=== PATIENT | female | born 1930 | race Caucasian/White ===

== ENCOUNTER → 2016-05-05 | Outpatient (CLI) | payer MEDICARE ==
[~2016-05-05] VITALS: Ht 167.6 cm; Wt 86.2 kg
== END ==
LOC: OPSV 11:00
DX: J44.9 Chronic obstructive pulmonary disease, unspecified (principal); J30.9 Allergic rhinitis, unspecified; Z88.2 Allergy status to sulfonamides; Z88.1 Allergy status to other antibiotic agents; Z88.8 Allergy status to other drugs, medicaments and biological substances
CPT/HCPCS: 96372; J2357

== ENCOUNTER → 2016-06-26 | Outpatient (CLI) | payer MEDICARE ==
[~2016-06-26] VITALS: Ht 160 cm; Wt 86.2 kg
== END ==
LOC: OPSV 10:00
DX: J44.9 Chronic obstructive pulmonary disease, unspecified (principal); J30.9 Allergic rhinitis, unspecified
CPT/HCPCS: 96372; J2357

== ENCOUNTER → 2016-07-24 | Outpatient (CLI) | payer MEDICARE ==
[~2016-07-24] VITALS: Ht 160 cm; Wt 86.2 kg
== END ==
LOC: OPSV 13:00
DX: J44.9 Chronic obstructive pulmonary disease, unspecified (principal); J30.9 Allergic rhinitis, unspecified
CPT/HCPCS: 96372; J2357

== ENCOUNTER → 2016-08-21 | Outpatient (CLI) | payer MEDICARE ==
[~2016-08-21] VITALS: Ht 160 cm; Wt 86.2 kg
== END ==
LOC: OPSV 13:00
DX: J44.9 Chronic obstructive pulmonary disease, unspecified (principal); J30.9 Allergic rhinitis, unspecified
CPT/HCPCS: 96372; J2357

== ENCOUNTER → 2016-11-15 | Outpatient (CLI) | payer MEDICARE ==
[~2016-11-15] VITALS: Ht 160 cm; Wt 86.2 kg
== END ==
LOC: OPSV 13:55
DX: J30.9 Allergic rhinitis, unspecified (principal); J44.9 Chronic obstructive pulmonary disease, unspecified
CPT/HCPCS: 96372; J2357

== ENCOUNTER → 2020-03-10 | Outpatient (CLI) | payer MEDICARE ==
[~2020-03-10] VITALS: Ht 160 cm; Wt 86.2 kg
== END ==
LOC: OPSV 12:51
DX: J30.9 Allergic rhinitis, unspecified (principal); J44.9 Chronic obstructive pulmonary disease, unspecified
CPT/HCPCS: 96372; J2357

== ENCOUNTER → 2020-04-07 | Outpatient (CLI) | payer MEDICARE ==
[~2020-04-07] VITALS: Ht 160 cm; Wt 86.2 kg
== END ==
LOC: OPSV 14:00
DX: J30.9 Allergic rhinitis, unspecified (principal); J44.9 Chronic obstructive pulmonary disease, unspecified
CPT/HCPCS: 96372; J2357

== ENCOUNTER → 2020-05-13 | Outpatient (CLI) | payer MEDICARE | LOC: OPSV 05-05 14:00 | DX: J30.9 Allergic rhinitis, unspecified (principal); J44.9 Chronic obstructive pulmonary disease, unspecified | CPT/HCPCS: 96372; J2357 ==

== ENCOUNTER → 2020-06-09 | Outpatient (CLI) | payer MEDICARE ==
[~2020-06-09] VITALS: Ht 160 cm; Wt 86.2 kg
== END ==
LOC: OPSV 14:00
DX: J30.9 Allergic rhinitis, unspecified (principal); J44.9 Chronic obstructive pulmonary disease, unspecified
CPT/HCPCS: 96372

== ENCOUNTER → 2020-07-07 | Outpatient (CLI) | payer MEDICARE ==
[~2020-07-07] VITALS: Ht 160 cm; Wt 86.2 kg
== END ==
LOC: OPSV 12:28
DX: J30.9 Allergic rhinitis, unspecified (principal); J44.9 Chronic obstructive pulmonary disease, unspecified
CPT/HCPCS: 96372; J2357

== ENCOUNTER → 2020-08-17 | Outpatient (CLI) | payer MEDICARE ==
[~2020-08-17] VITALS: Ht 160 cm; Wt 86.2 kg
== END ==
LOC: OPSV 13:00
DX: J30.9 Allergic rhinitis, unspecified (principal); J44.9 Chronic obstructive pulmonary disease, unspecified
CPT/HCPCS: 96372; J2357

== ENCOUNTER → 2020-09-22 | Outpatient (CLI) | payer MEDICARE ==
[~2020-09-22] VITALS: Ht 160 cm; Wt 86.2 kg
== END ==
LOC: OPSV 09-14 13:00
DX: J30.9 Allergic rhinitis, unspecified (principal); J44.9 Chronic obstructive pulmonary disease, unspecified
CPT/HCPCS: 96372; J2357

== ENCOUNTER → 2020-10-20 | Outpatient (CLI) | payer MEDICARE ==
[~2020-10-20] VITALS: Ht 160 cm; Wt 86.2 kg
== END ==
LOC: OPSV 13:00
DX: J30.9 Allergic rhinitis, unspecified (principal); J44.9 Chronic obstructive pulmonary disease, unspecified
CPT/HCPCS: 96372; J2357

== ENCOUNTER → 2020-11-15 | Outpatient (CLI) | payer MEDICARE | LOC: EXRD 14:12 | DX: I50.30 Unspecified diastolic (congestive) heart failure (principal) | CPT/HCPCS: 71046 ==

== ENCOUNTER → 2020-11-18 | Outpatient (CLI) | payer MEDICARE ==
[~2020-11-18] VITALS: Ht 160 cm; Wt 86.2 kg
== END ==
LOC: OPSV 14:00
DX: J44.9 Chronic obstructive pulmonary disease, unspecified (principal); J30.9 Allergic rhinitis, unspecified
CPT/HCPCS: 96372; J2357

== ENCOUNTER → 2020-12-16 | Outpatient (CLI) | payer MEDICARE ==
[~2020-12-16] VITALS: Ht 160 cm; Wt 86.2 kg
== END ==
LOC: OPSV 14:00
DX: J30.9 Allergic rhinitis, unspecified (principal); J44.9 Chronic obstructive pulmonary disease, unspecified
CPT/HCPCS: 96372; J2357

== ENCOUNTER → 2021-01-19 | Outpatient (CLI) | payer MEDICARE | LOC: OPSV 13:00 | DX: J30.9 Allergic rhinitis, unspecified (principal); J44.9 Chronic obstructive pulmonary disease, unspecified | CPT/HCPCS: 96372; J2357 ==